=== PATIENT | male | born 1990 | race African-American/Black ===

== ENCOUNTER 2024-08-28 17:31 | Inpatient (IN) | payer OTHER ==
[2024-08-28 19:35] VITALS: BMI 20.7
[2024-08-28] MEDS ORDERED: LOPERAMIDE HCL 2 MG CAPSULE PO PRN (19:50)
[2024-08-28] MEDS ORDERED: POLYETHYLENE GLYCOL (HEALTHYLAX) 3350 17 GM PACKET PO PRN (19:50)
[2024-08-28] MEDS ORDERED: NALOXONE (NARCAN) HCL 4 MG/0.1 ML SPRAY NS PRN (19:50)
[2024-08-28] MEDS ORDERED: guaiFENesin 600 MG TABLET.ER (FP) PO PRN (19:50)
[2024-08-28] MEDS ORDERED: BENZONATATE 200 MG CAPSULE PO PRN (19:50)
[2024-08-28] MEDS ORDERED: MAGNESIUM HYDROX 2400MG/30ML ORAL SUSPENSION 30 ML CUP PO PRN (19:50)
[2024-08-28] MEDS ORDERED: hydrOXYzine PAMOATE 25 MG CAPSULE (FP) PO PRN (19:50)
[2024-08-28] MEDS ORDERED: NICOTINE POLACRILEX 2 MG LOZENGE BC PRN (19:50)
[2024-08-28] MEDS ORDERED: NICOTINE POLACRILEX 2 MG GUM BUC PRN (19:50)
[2024-08-28] MEDS ORDERED: ACETAMINOPHEN 325 MG TABLET (FP) PO PRN (19:50)
[2024-08-28] MEDS ORDERED: BENZOCAINE/MENTHOL (CHLORASEPTIC ) LOZENGE MM PRN (19:50)
[2024-08-28] MEDS ORDERED: MAG HYDROX/AL HYDROX/SIMETH 30 ML UNIT-DOSE CUP PO PRN (19:50)
[2024-08-28] MEDS ORDERED: TUBERCULIN PPD 5 TU/0.1ML VIAL ID ONE (23:20)
[2024-08-28] MEDS: MELATONIN 5 MG TABLETS PO SCH (23:26)
[2024-08-28] MEDS: THIAMINE 100 MG TABLET PO SCH (23:26)
[2024-08-28] MEDS: TUBERCULIN PPD 5 TU/0.1ML SYRINGE (IN PATIENT USE ONLY) ID ONE (23:27)
[2024-08-29] MEDS: PRENATAL VITAMINS W/ FOLIC ACID TABLET (FP) PO SCH (10:47)
[2024-08-29 15:59] LABS: CHLORIDE 110 mmol/L (98-107); POTASSIUM 4.2 mmol/L (3.5-5.1); SODIUM 142 mmol/L (136-145)
[2024-08-29 16:02] LABS: HEMATOCRIT 37.5 % (35.4-49); MCH 34.3 pg (25.7-33.7); MCHC 34.6 g/dl (32.0-35.9); MEAN CELL VOLUME 99.3 fl (80-96); MEAN PLT VOLUME 9.1 fl (7.5-11.1); PLATELET COUNT 201 10^3/uL (134-434); RBC 3.78 M/mm3 (4.00-5.60); WHITE BLOOD COUNT 6.8 K/mm3 (4.0-10.0)
[2024-08-29 16:04] LABS: EPI CELLS 11 /uL (0-25.1); HYALINE CASTS 2 /uL (0-3.1); URINE APPEARANCE TURBID; URINE BACTERIA 113 /uL (0-1359); URINE BILIRUBIN NEGATIVE (NEGATIVE); URINE COLOR YELLOW; URINE GLUCOSE (UA) NEGATIVE (NEGATIVE); URINE KETONE NEGATIVE (NEGATIVE); URINE LEUK ESTERASE 1+ (NEGATIVE); URINE NITRITE NEGATIVE (NEGATIVE); URINE PROTEIN NEGATIVE (NEGATIVE); URINE RBC 4 /uL (0-23.9); URINE WBC 69 /uL (0-25.8)
[2024-08-29 16:10] LABS: ANION GAP 4 mmol/L (4-13); BLOOD UREA NITROGEN 21.9 mg/dL (7-18); CALCIUM 8.8 mg/dL (8.5-10.1); CO2 28 mmol/L (21-32); GLUCOSE,RANDOM 132 mg/dL (74-106)
[2024-08-29 16:14] LABS: SGOT/AST 17 U/L (15-37); SGPT/ALT 24 U/L (13-61); TOT PROT 5.6 g/dl (6.4-8.2)
[2024-08-29 16:16] LABS: ALK PHOS 64 U/L (45-117)
[2024-08-29 16:57] LABS: BILIRUBIN,TOTAL 0.2 mg/dL (0.2-1)
[2024-08-29] MEDS: QUEtiapine FUMARATE 50 MG TABLET PO SCH (21:14)
[2024-08-30] MEDS: QUEtiapine FUMARATE 50 MG TABLET PO SCH (10:47)
[2024-08-30] MEDS: QUEtiapine FUMARATE 100 MG TABLET (FP) PO SCH (21:19)
[2024-08-31] MEDS: PENICILLIN G BENZATHINE 2,400,000 UNIT/4 ML PFS IM ONE (14:48)
[2024-09-01] MEDS: NALTREXONE HCL 50 MG TABLET PO ONE (10:02)
[2024-09-01 13:47] LABS: HIV INTERPRETATION NEGATIVE (NEGATIVE)
[2024-09-07] MEDS: PENICILLIN G BENZATHINE 2,400,000 UNIT/4 ML PFS IM ONE (10:16)
[2024-09-07] MEDS: NALTREXONE HCL 50 MG TABLET PO ONE (15:00)
[2024-09-07] MEDS: BACLOFEN 10 MG TABLET (FP) PO SCH (21:11)
[2024-09-08] MEDS: NALTREXONE HCL 50 MG TABLET PO SCH (09:56)
[2024-09-08] MEDS: IBUPROFEN 600 MG TABLET (FP) PO PRN (18:57)
[2024-09-14] MEDS: PENICILLIN G BENZATHINE 2,400,000 UNIT/4 ML PFS IM ONE (11:36)
[2024-09-17] MEDS: IBUPROFEN 400 MG TABLET (FP) PO PRN (14:30)
[2024-09-23] MEDS ORDERED: QUEtiapine FUMARATE 50 MG TABLET ONE (20:31)
[2024-09-24 06:56] VITALS: RESP 16; TEMP 97.8
[2024-09-24] MEDS ORDERED: QUEtiapine FUMARATE 50 MG TABLET ONE (20:23)
[2024-09-25 06:46] VITALS: BP 105/56; PULSE 74
[2024-09-25] MEDS: NALOXONE (NYS OPIOID OVERDOSE PROGRAM) 4 MG/0.1 ML SPRAY NS SCH (08:55)
== END 2024-09-25 09:08 | disposition home or self-care (01) | DRG 772 ==
LOC: YASAS 17:31 → Y3W 21:59
PROVIDERS: ADMIT Psychiatry & Neurology Pain Medicine; ATTEND Psychiatry & Neurology Pain Medicine
PROC: HZ42ZZZ Group Counseling for Substance Abuse Treatment, Cognitive-Behavioral (ICD-10-PCS; principal; 2024-08-28)
DX: F14.20 Cocaine dependence, uncomplicated (principal); F15.20 Other stimulant dependence, uncomplicated; F10.20 Alcohol dependence, uncomplicated; F12.20 Cannabis dependence, uncomplicated; F17.210 Nicotine dependence, cigarettes, uncomplicated; F19.24 Other psychoactive substance dependence with psychoactive substance-induced mood disorder; Z59.01 Sheltered homelessness
CPT/HCPCS: 36415; 80053; 80307; 81003; 82962; 85027; 86593; 86780; 86803; 87389; 87491; 87591; 87661; 93005; 93010; J0475

== ENCOUNTER 2024-10-11 21:14 | Inpatient (IN) | payer OTHER ==
[2024-10-11 21:39] VITALS: BMI 20.9
[2024-10-11] MEDS ORDERED: NALOXONE (NARCAN) HCL 4 MG/0.1 ML SPRAY NS PRN (22:38)
[2024-10-11] MEDS ORDERED: LOPERAMIDE HCL 2 MG CAPSULE PO PRN (22:38)
[2024-10-11] MEDS ORDERED: BENZONATATE 200 MG CAPSULE PO PRN (22:38)
[2024-10-11] MEDS ORDERED: POLYETHYLENE GLYCOL (HEALTHYLAX) 3350 17 GM PACKET PO PRN (22:38)
[2024-10-11] MEDS ORDERED: IBUPROFEN 600 MG TABLET (FP) PO PRN (22:38)
[2024-10-11] MEDS ORDERED: IBUPROFEN 400 MG TABLET (FP) PO PRN (22:38)
[2024-10-11] MEDS ORDERED: MAGNESIUM HYDROX 2400MG/30ML ORAL SUSPENSION 30 ML CUP PO PRN (22:38)
[2024-10-11] MEDS ORDERED: ACETAMINOPHEN 325 MG TABLET (FP) PO PRN (22:38)
[2024-10-11] MEDS ORDERED: guaiFENesin 600 MG TABLET.ER (FP) PO PRN (22:38)
[2024-10-11] MEDS ORDERED: BENZOCAINE/MENTHOL (CHLORASEPTIC ) LOZENGE MM PRN (22:38)
[2024-10-11] MEDS ORDERED: NICOTINE POLACRILEX 4 MG GUM BUC PRN (22:38)
[2024-10-12] MEDS ORDERED: MELATONIN 5 MG TABLETS ONE (01:14)
[2024-10-12] MEDS: MELATONIN 5 MG TABLETS PO SCH (01:16)
[2024-10-12] MEDS ORDERED: hydrOXYzine PAMOATE 25 MG CAPSULE (FP) PO ONE (01:17)
[2024-10-12] MEDS: hydrOXYzine PAMOATE 25 MG CAPSULE (FP) PO PRN (01:18)
[2024-10-12 09:16] LABS: HEMATOCRIT 43.7 % (35.4-49); HEMOGLOBIN 14.5 GM/dL (11.7-16.9); MCH 31.7 pg (25.7-33.7); MCHC 33.1 g/dl (32.0-35.9); MEAN CELL VOLUME 95.8 fl (80-96); MEAN PLT VOLUME 9.6 fl (7.5-11.1); PLATELET COUNT 225 10^3/uL (134-434); RBC 4.56 M/mm3 (4.00-5.60); RDW 12.1 % (11.9-15.9); WHITE BLOOD COUNT 11.1 K/mm3 (4.0-10.0)
[2024-10-12 09:18] LABS: CHLORIDE 106 mmol/L (98-107); POTASSIUM 4.6 mmol/L (3.5-5.1); SODIUM 141 mmol/L (136-145)
[2024-10-12 09:37] LABS: ALBUMIN 3.8 g/dl (3.4-5.0); CALCIUM 9.8 mg/dL (8.5-10.1)
[2024-10-12 09:38] LABS: ANION GAP 7 mmol/L (4-13); BLOOD UREA NITROGEN 26.4 mg/dL (7-18); CO2 28 mmol/L (21-32); GLUCOSE,RANDOM 86 mg/dL (74-106)
[2024-10-12 09:40] LABS: CREATININE 1.5 mg/dL (0.55-1.3); SGOT/AST 17 U/L (15-37); SGPT/ALT 18 U/L (13-61)
[2024-10-12 09:41] LABS: TOT PROT 7.1 g/dl (6.4-8.2)
[2024-10-12 09:42] LABS: BILIRUBIN,TOTAL 0.3 mg/dL (0.2-1)
[2024-10-12 09:43] LABS: ALK PHOS 69 U/L (45-117)
[2024-10-12] MEDS: FLU VACCINE (FLULAVAL) PF 45 MCG/0.5 ML SYRINGE 2024-2025 IM ONE (10:15)
[2024-10-12] MEDS: PRENATAL VITAMINS W/ FOLIC ACID TABLET (FP) PO SCH (10:45)
[2024-10-12] MEDS: NICOTINE 21 MG/24 HOURS TOPICAL PATCH TD SCH (10:45)
[2024-10-12 12:09] LABS: HIV INTERPRETATION NEGATIVE (NEGATIVE)
[2024-10-12] MEDS: MAG HYDROX/AL HYDROX/SIMETH 30 ML UNIT-DOSE CUP PO PRN (14:39)
[2024-10-12 17:41] LABS: PH,URINE 5.5 (5.0-8.0); URINE APPEARANCE TURBID; URINE BILIRUBIN NEGATIVE (NEGATIVE); URINE COLOR YELLOW; URINE GLUCOSE (UA) NEGATIVE (NEGATIVE); URINE KETONE TRACE (NEGATIVE); URINE LEUK ESTERASE NEGATIVE (NEGATIVE); URINE NITRITE NEGATIVE (NEGATIVE); URINE PROTEIN NEGATIVE (NEGATIVE); URINE UROBILINOGEN 0.2 mg/dL (0.2-1.0)
[2024-10-12] MEDS: THIAMINE 100 MG TABLET PO SCH (21:29)
[2024-10-12] MEDS: QUEtiapine FUMARATE 50 MG TABLET PO SCH (21:29)
[2024-10-16] MEDS ORDERED: NICOTINE 21 MG/24 HOURS TOPICAL PATCH TD PRN (12:17)
[2024-10-22 06:06] VITALS: RESP 16
[2024-10-23 07:06] VITALS: BP 123/57; PULSE 74; TEMP 97.3
== END 2024-10-23 13:10 | disposition home or self-care (01) | DRG 772 ==
LOC: YASAS 21:14 → Y3NR 23:55 → Y3W 10-12 09:45
PROVIDERS: ADMIT Psychiatry & Neurology Pain Medicine; ATTEND Psychiatry & Neurology Pain Medicine
PROC: HZ42ZZZ Group Counseling for Substance Abuse Treatment, Cognitive-Behavioral (ICD-10-PCS; principal; 2024-10-11)
DX: F14.10 Cocaine abuse, uncomplicated (principal); F13.20 Sedative, hypnotic or anxiolytic dependence, uncomplicated; F15.20 Other stimulant dependence, uncomplicated; F16.10 Hallucinogen abuse, uncomplicated; F17.210 Nicotine dependence, cigarettes, uncomplicated; F31.9 Bipolar disorder, unspecified; F90.9 Attention-deficit hyperactivity disorder, unspecified type; K21.9 Gastro-esophageal reflux disease without esophagitis; Z62.810 Personal history of physical and sexual abuse in childhood; Z63.8 Other specified problems related to primary support group; Z59.01 Sheltered homelessness; Z88.8 Allergy status to other drugs, medicaments and biological substances
CPT/HCPCS: 36415; 80053; 80305; 80307; 81003; 85027; 86593; 86780; 86803; 87389; 87811; 90656; 93005; 93010; G0008

== ENCOUNTER 2025-03-28 02:16 | Inpatient (IN) | payer OTHER ==
[2025-03-28] MEDS ORDERED: LOPERAMIDE HCL 2 MG CAPSULE PO PRN (03:42)
[2025-03-28] MEDS ORDERED: NALOXONE (NARCAN) HCL 4 MG/0.1 ML SPRAY NS PRN (03:42)
[2025-03-28] MEDS ORDERED: BENZONATATE 200 MG CAPSULE PO PRN (03:42)
[2025-03-28] MEDS ORDERED: POLYETHYLENE GLYCOL (HEALTHYLAX) 3350 17 GM PACKET PO PRN (03:42)
[2025-03-28] MEDS ORDERED: hydrOXYzine PAMOATE 25 MG CAPSULE (FP) PO PRN (03:42)
[2025-03-28] MEDS ORDERED: BENZOCAINE/MENTHOL (CHLORASEPTIC ) LOZENGE MM PRN (03:42)
[2025-03-28] MEDS ORDERED: guaiFENesin 600 MG TABLET.ER (FP) PO PRN (03:42)
[2025-03-28] MEDS ORDERED: IBUPROFEN 400 MG TABLET (FP) PO PRN (03:42)
[2025-03-28] MEDS ORDERED: MAGNESIUM HYDROX 2400MG/30ML ORAL SUSPENSION 30 ML CUP PO PRN (03:42)
[2025-03-28] MEDS ORDERED: MAG HYDROX/AL HYDROX/SIMETH 30 ML UNIT-DOSE CUP PO PRN (03:42)
[2025-03-28 04:37] VITALS: BMI 20.9
[2025-03-28] MEDS: PRENATAL VITAMINS W/ FOLIC ACID TABLET (FP) PO SCH (09:15)
[2025-03-28] MEDS: NICOTINE 14 MG/24 HOURS TOPICAL PATCH TD SCH (09:15)
[2025-03-28 11:37] LABS: EPI CELLS 11 /uL (0-25.1); HYALINE CASTS 1 /uL (0-3.1); URINE APPEARANCE CLEAR; URINE BACTERIA 209 /uL (0-1359); URINE BILIRUBIN NEGATIVE (NEGATIVE); URINE COLOR YELLOW; URINE GLUCOSE (UA) NEGATIVE (NEGATIVE); URINE KETONE NEGATIVE (NEGATIVE); URINE LEUK ESTERASE TRACE (NEGATIVE); URINE NITRITE NEGATIVE (NEGATIVE); URINE PROTEIN NEGATIVE (NEGATIVE); URINE RBC 4 /uL (0-23.9); URINE UROBILINOGEN 0.2 mg/dL (0.2-1.0); URINE WBC 75 /uL (0-25.8)
[2025-03-28] MEDS: MELATONIN 5 MG TABLETS PO SCH (21:50)
[2025-03-28] MEDS: THIAMINE 100 MG TABLET PO SCH (21:50)
[2025-03-29 10:09] LABS: MCHC 32.1 g/dl (32.3-36.5); MEAN CELL VOLUME 95.5 fl (79.0-92.2); MEAN PLT VOLUME 12.0 fl (9.4-12.4); RDW 11.8 % (12.0-15.6)
[2025-03-30 16:50] LABS: ALK PHOS 61.0 U/L (45-117); CO2 30.0 mmol/L (21-32); CREATININE 0.9 mg/dL (0.55-1.3); GLUCOSE,RANDOM 108.0 mg/dL (74-106); SGOT/AST 12.0 U/L (15-37); SGPT/ALT 20.0 U/L (13-61); TOT PROT 6.2 g/dl (6.4-8.2)
[2025-04-02] MEDS: PENICILLIN G BENZATHINE 2,400,000 UNIT/4 ML PFS IM SCH (21:44)
[2025-04-03] MEDS: NALTREXONE HCL 50 MG TABLET PO ONE (17:35)
[2025-04-03] MEDS: DOXYCYCLINE HYCLATE 100 MG TABLET PO SCH (17:36)
[2025-04-04] MEDS: BACLOFEN 10 MG TABLET (FP) PO SCH (10:06)
[2025-04-04] MEDS: NALTREXONE HCL 50 MG TABLET PO SCH (10:06)
[2025-04-04] MEDS: NICOTINE 21 MG/24 HOURS TOPICAL PATCH TD SCH (10:07)
[2025-04-04] MEDS: IBUPROFEN 600 MG TABLET (FP) PO PRN (14:22)
[2025-04-06] MEDS: NICOTINE POLACRILEX 2 MG GUM BUC PRN (21:50)
[2025-04-08] MEDS: ACETAMINOPHEN 325 MG TABLET (FP) PO PRN (04:32)
[2025-04-09 18:58] LABS: HIV INTERPRETATION NEGATIVE (NEGATIVE)
[2025-04-18] MEDS: NICOTINE POLACRILEX 2 MG GUM BUC PRN (15:51)
[2025-04-23] MEDS: DOXYCYCLINE HYCLATE 100 MG TABLET PO SCH (17:12)
[2025-04-24 06:01] VITALS: BP 108/66; PULSE 81; RESP 16; TEMP 97.5
== END 2025-04-24 09:47 | disposition home or self-care (01) | DRG 753 ==
LOC: YASAS 02:16 → Y3NR 04:35 → Y3E 03-30 14:10 → Y3W 04-02 11:01
PROVIDERS: ADMIT Allergy & Immunology; ATTEND Psychiatry & Neurology Pain Medicine
PROC: HZ42ZZZ Group Counseling for Substance Abuse Treatment, Cognitive-Behavioral (ICD-10-PCS; principal; 2025-03-28)
DX: F31.9 Bipolar disorder, unspecified (principal); F41.8 Other specified anxiety disorders; F17.210 Nicotine dependence, cigarettes, uncomplicated; F12.20 Cannabis dependence, uncomplicated; Z59.00 Homelessness unspecified; F90.9 Attention-deficit hyperactivity disorder, unspecified type
CPT/HCPCS: 36415; 80053; 80305; 80307; 81003; 85027; 86593; 86780; 86803; 87389; 87491; 87591; 87661; 87811; 93005; 93010; J0475